=== PATIENT | female | born 2005 | race Caucasian/White ===

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

== ENCOUNTER 2025-08-13 16:08 | Observation (INO) | payer BC ==
[2025-08-13 16:46] LABS: BASOPHILS ABSOLUTE AUTO 0.06 K/uL (0.00-0.30); BASOPHILS PERCENT AUTO 0.5 % (0.0-1.0); EOSINOPHILS ABSOLUTE AUTO 0.10 K/uL (0.00-0.70); EOSINOPHILS PERCENT AUTO 0.8 % (0.0-5.0); IMMATURE GRAN ABSOLUTE AUTO 0.03 K/uL (0.00-0.05); IMMATURE GRAN PERCENT AUTO 0.2 % (0.0-0.4); LYMPHOCYTES ABSOLUTE AUTO 3.08 K/uL (2.00-8.80); LYMPHOCYTES PERCENT AUTO 25.1 % (50.0-65.0); MEAN PLATELET VOLUME 10.3 fL (9.4-12.3); MONOCYTES ABSOLUTE AUTO 1.18 K/uL (0.10-1.40); MONOCYTES PERCENT AUTO 9.6 % (2.0-10.0); NEUTROPHILS ABSOLUTE AUTO 7.80 K/uL (1.50-8.50); NEUTROPHILS PERCENT AUTO 63.8 % (35.0-45.0); NRBC ABSOLUTE 0.00 K/uL (0.00-0.03); NRBC PERCENT 0.0 /100WBC (0.0-0.2); PLATELET COUNT,PLT 424 K/uL (150-400); RED BLOOD CELL COUNT 4.98 M/uL (4.10-5.30); WHITE BLOOD CELL COUNT,WBC 12.25 K/uL (4.5-13.5)
[2025-08-13 17:09] LABS: A/G RATIO 1.2 (0.9-1.6); ALANINE AMINOTRANSFERASE,ALT 22.0 IU/L (14-63); ASPARTATE AMNIOTRANSFERASE,AST 18.0 IU/L (15-37); BILIRUBIN TOTAL 0.6 mg/dL (0.2-1.0); BLOOD UREA NITROGEN,BUN 8.0 mg/dL (7.0-18.0); CARBON DIOXIDE,CO2 27.8 mmol/L (21.0-32.0); CHLORIDE,CL 105.0 mmol/L (98-107); CREATININE 0.8 mg/dL (0.6-1.0); EST CRCL DRUG DOSING (CG) 89.46 mL/min; ESTIMATED GFR 109.0 mL/min (>60); GLUCOSE RANDOM 100.0 mg/dL (74-106); POTASSIUM,K 3.7 mmol/L (3.5-5.1); PROTEIN TOTAL,TP 8.2 g/dL (6.4-8.2); SODIUM,NA 141.0 mmol/L (136-145)
[2025-08-13 17:48] LABS: AMPHETAMINES SCREEN, URINE NEGATIVE (CUTOFF=500); BUPRENORPHINE SCREEN,URINE NEGATIVE (CUTOFF=10); METHADONE SCREEN, URINE NEGATIVE (CUTOFF=200); METHAMPHETAMINES SCREEN, URINE NEGATIVE (CUTOFF=500); OXYCODONE SCREEN,URINE NEGATIVE (CUT0FF=100); PCP SCREEN,URINE NEGATIVE (CUTOFF=25); THC SCREEN,URINE 20 NG/ML NEGATIVE (CUTOFF=50)
[2025-08-13 17:57] LABS: TSH ULTRASENSITIVE 1.62 uIU/mL (0.36-3.74)
[2025-08-13] MEDS: Iopamidol 755 MG/ML 500 ML Multipack Bottle IVPUSH STA (20:23)
[2025-08-13] MEDS ORDERED: Sodium Chloride 0.9% 2.5 ML Syringe FLUSH PRN (21:00)
[2025-08-13] MEDS ORDERED: Sodium Chloride 0.9% 10 ML Syringe FLUSH PRN (21:00)
[2025-08-13] MEDS ORDERED: Ondansetron 4 MG/2 ML SDV IVPUSH PRN (21:00)
[2025-08-14 05:43] LABS: BASOPHILS ABSOLUTE AUTO 0.06 K/uL (0.00-0.30); BASOPHILS PERCENT AUTO 0.8 % (0.0-1.0); EOSINOPHILS ABSOLUTE AUTO 0.13 K/uL (0.00-0.70); EOSINOPHILS PERCENT AUTO 1.8 % (0.0-5.0); IMMATURE GRAN ABSOLUTE AUTO 0.01 K/uL (0.00-0.05); IMMATURE GRAN PERCENT AUTO 0.1 % (0.0-0.4); LYMPHOCYTES ABSOLUTE AUTO 3.03 K/uL (2.00-8.80); LYMPHOCYTES PERCENT AUTO 42.1 % (50.0-65.0); MEAN PLATELET VOLUME 10.7 fL (9.4-12.3); MONOCYTES ABSOLUTE AUTO 0.80 K/uL (0.10-1.40); MONOCYTES PERCENT AUTO 11.1 % (2.0-10.0); NEUTROPHILS ABSOLUTE AUTO 3.16 K/uL (1.50-8.50); NEUTROPHILS PERCENT AUTO 44.1 % (35.0-45.0); NRBC ABSOLUTE 0.00 K/uL (0.00-0.03); NRBC PERCENT 0.0 /100WBC (0.0-0.2); PLATELET COUNT,PLT 287 K/uL (150-400); RED BLOOD CELL COUNT 3.95 M/uL (4.10-5.30); WHITE BLOOD CELL COUNT,WBC 7.19 K/uL (4.5-13.5)
[2025-08-14 06:03] LABS: BLOOD UREA NITROGEN,BUN 7.0 mg/dL (7.0-18.0); CARBON DIOXIDE,CO2 24.6 mmol/L (21.0-32.0); CHLORIDE,CL 112.0 mmol/L (98-107); CREATININE 0.6 mg/dL (0.6-1.0); EST CRCL DRUG DOSING (CG) 119.28 mL/min; GLUCOSE RANDOM 90.0 mg/dL (74-106); POTASSIUM,K 3.6 mmol/L (3.5-5.1); SODIUM,NA 143.0 mmol/L (136-145)
[2025-08-14 06:21] LABS: ESTIMATED GFR 133.0 mL/min (>60)
[2025-08-14] MEDS ORDERED: FLU (Flulaval) 25-26(6MOS UP)/PF 45 MCG/0.5 ML Syringe IM ONE (09:00)
== END 2025-08-14 11:50 | disposition home or self-care (01) ==
LOC: MW.ED 16:08 → MW.MS 20:41
PROVIDERS: ADMIT Family Medicine; ATTEND Family Medicine
DX: K62.5 Hemorrhage of anus and rectum (principal); R19.5 Other fecal abnormalities; R00.0 Tachycardia, unspecified; Z79.899 Other long term (current) drug therapy
CPT/HCPCS: 36415; 74177; 80048; 80053; 80305; 83735; 84443; 84703; 85025; 93005; 93246; A9270; J7030; Q9967; 93010; 99285

== ENCOUNTER 2025-09-11 09:44 | Day surgery (SDC) | payer BC ==
[~2025-09-11 09:44] MED LIST: Sodium Chloride 0.9% 10 ML Syringe FLUSH PRN; Sodium Chloride 0.9% 2.5 ML Syringe FLUSH PRN
[2025-09-11] MEDS: Lactated Ringers 1,000 ML IV SCH (10:27)
[2025-09-11] MEDS ORDERED: Propofol 200 MG/20 ML SDV ONE (11:11)
== END 2025-09-11 12:20 | disposition home or self-care (01) ==
LOC: MW.SDS 09:44
PROVIDERS: ATTEND Surgery
DX: K64.1 Second degree hemorrhoids (principal); J45.909 Unspecified asthma, uncomplicated; K57.30 Diverticulosis of large intestine without perforation or abscess without bleeding; Z91.040 Latex allergy status
CPT/HCPCS: 45380; 81025; J2003; J2704; J7120; 00811